=== PATIENT | female | born 1980 | race African-American/Black ===

== ENCOUNTER 2023-05-04 15:17 | Outpatient (CLI) | payer BC | END 2023-05-04 15:18 | disposition home or self-care (01) | LOC: CSHMAMMO 15:17 | PROVIDERS: ATTEND Obstetrics & Gynecology | DX: Z12.31 Encounter for screening mammogram for malignant neoplasm of breast (principal) | CPT/HCPCS: 77063; 77067 ==

== ENCOUNTER 2025-05-08 15:34 | Outpatient (CLI) | payer BC | END 2025-05-08 15:35 | disposition home or self-care (01) | LOC: CSHMAMMO 15:34 | PROVIDERS: ATTEND Obstetrics & Gynecology | DX: Z12.31 Encounter for screening mammogram for malignant neoplasm of breast (principal); Z80.3 Family history of malignant neoplasm of breast | CPT/HCPCS: 77063; 77067 ==